=== PATIENT | female | born 1990 | race African-American/Black ===

== ENCOUNTER 2025-03-03 09:58 | Outpatient (OUT) | payer BC, SELFPAY | END 2025-03-03 09:59 | disposition home or self-care (01) | LOC: LAB 10:02 | PROVIDERS: Visit Provider Obstetrics & Gynecology | DX: E28.2 Polycystic ovarian syndrome (principal) | CPT/HCPCS: 36415; 84144 ==

== ENCOUNTER 2025-04-02 10:34 | Outpatient (OUT) | payer BC, SELFPAY ==
--- OUTSIDE RECORDS SUMMARY | 2025-04-02 10:38 | XMS_ITS | Encounter Summary ---
Author Organization [facility] Address [address] [place] [address] Care Team Providers Care Explosives Detonator Name Role Phone Unavailable Primary Care Provider Unavailabl e Encounter Details Date Type Department Care Team (Late Contact Info) Description 02/08/2025 Abstract [facility] [address] [place] [phone] Rob Clay, DO [address] [place], [facility] Social History Tobacco Use Types Packs/Day Years Used Date Smoking Tobacco: Never Assessed Comments Unknown Sex and Gender Information Value Date Recorded Sex Assigned at Not on file Legal Sex Female 6:39 PM EDT Gender Identity Not on file Sexual Orientation Not on file documented as of this encounter Plan of Treatment Upcoming Encounters Date Type Department Care Team (Late Contact Info) Description 06/13/2025 9:50 AM EDT Office Visit [facility] [address] [place] [phone] Rob Clay, DO [address] [place], [facility]11 documented as of this encounter Visit Diagnoses Not on filedocumented in this encounter
--- OUTSIDE RECORDS SUMMARY | 2025-04-02 10:38 | XMS_ITS | Encounter Summary ---
Author Organization [facility] Address [address] [place] [address] Care Team Providers Care Metal Sprayer Protective Coating Name Role Phone Unavailable Primary Care Provider Unavailabl e Encounter Details Date Type Department Care Team ([facility] Contact Info) Description 03/22/2025 Telephone [facility] [address] [place] [phone] Kristin Varela LPN Social History Tobacco Use Types Packs/Day Years Used Date Smoking Tobacco: Never Assessed Comments Unknown Sex and Gender Information Value Date Recorded Sex Assigned at Not on file Legal Sex Female 6:39 PM EDT Gender Identity Not on file Sexual Orientation Not on file documented as of this encounter Miscellaneous Notes * Telephone Encounter - Kristin Varela LPN - 03/22/2025 8:13 AM EDT 03/21/25 11:27am Patient called and LMOM that her cycle actually started on 03/13/25 and wondered if she would be able to have labs drawn on Friday the instead of Friday the . Patient request a call back. 03/22/25 @ 8:13am Called patient and informed her that since her cycle started on 03/13/25 the ideal date to get her labs drawn would be Friday04/02/25 as that would be . Informed patient onmessage that the labs are open for draws on Friday's, but if she was unable to make it on Friday then she could go on Friday if she was not able to. Advised patient to call office with any further concerns/questions. Kristin Wing LPN documented in this encounter Plan of Treatment Upcoming Encounters Date Type Department Care Team (Late st Contact Info) Description 06/13/2025 9:50 AM EDT Office Visit [facility] [address] [place] [phone] Rob Clay, [address] [place] [address] documented as of this encounter Visit Diagnoses Not on filedocumented in this encounter
--- OUTSIDE RECORDS SUMMARY | 2025-04-02 10:38 | XMS_ITS | Clinical Summary ---
Author Organization [facility] Address [address] [place] [address] Care Team Providers Care Power Transformer Assembler Name Role Phone Unavailable Primary Care Provider Unavailabl e Allergies Active Allergy Reactions Criticality Noted Date Comments Latex, Natural Rubber 09/23/2014 Other reaction(s): other Ondansetron Itching 09/19/2016 Sulfa (Sulfonamide Antibiotics) 09/19/2016 Medications No known medications Social History Tobacco Use Types Packs/Day Years Used Date Smoking Tobacco: Never Smokeless Tobacco: Never Tobacco Cessation:Counseling Given: Not Answered Alcohol Use Standard Drinks/Week Comments Yes 0 (1 standard drink = 0.6 oz pur e alcohol) ocassionaly Humiliation, Afraid, Rape, and Kick questionnair e Answer Date Recorded Within the last year, have y ou been afraid of your partner or ex-partner? No 04/22/2023 Within the last year, have y ou been humiliated or emotionally abused in other ways by your partner or ex-partner? No Within the last year, have y ou been kicked, hit, slapped, or otherwise physically hurt by your partner or ex-partner? No 04/22/2023 Within the last year, have y ou been raped or forced to have any kind of sexual activity by your partner or ex-partner? No 04/22/2023 PHQ-2 Answer Date Recorded Patient Health Questionnaire-2 Score 0 04/22/2023 [place] Safety & Environment Answer Date Rec orded Within the last year, have y ou been afraid of your partner or ex-partner? No 04/22/2023 Within the last year, have y ou been humiliated or emotionally abused in other ways by your partner or ex-partner? No 04/22/2023 Within the last year, have y ou been kicked, hit, slapped, or otherwise physically hurt by your partner or ex-partner? No 04/22/2023 Within the last year, have y ou been raped or forced to have any kind of sexual activity by your partner or ex-partner? No 04/22/2023 Physically or Sexually Abused Not on file Comments No Sex and Gender Information Value Date Recorded Sex Assigned at Not on file Legal Sex Female 10:54 PM EDT Gender Identity Not on file Sexual Orientation Not on file Last Filed Vital Signs Vital Sign Reading Time Taken Comments Blood Pressure 120/78 05/29/2021 10:06 AM EDT Pulse 80 03/21/2021 9:59 AM EDT Temperature - - Respiratory Rate - - Oxygen Saturation - - Inhaled Oxygen Concentration - - Weight 70.3 kg (155 lb) 04/22/2023 8:38 AM EDT Height 160 cm (5' 3 ) 04/22/2023 8:38 AM EDT Body Mass Index 27.46 04/22/2023 8:38 AM EDT Plan of Treatment Health Maintenance Due Date Last Done Comments Depression Screening 2004 Varicella Vaccines (1 of 2 - 13+ 2-dose series) 2005 Pap Smear 2013 Cervical Cancer Screening 2022 HPV/Cotest 2022 Influenza Vaccine (Season Ended) 2025 08/01/2017, 11/26/2016, 08/17/2013 Adult Tetanus 04/14/2027 04/14/2017, 09/05, 12/14/2008 Zoster Vaccines (1 of 2) 2042 HIB Vaccines Completed 02/27/1994, 08/06, 05/28/1993, Additional history exists Hepatitis B Vaccines Completed 06/10/1995, 02/27/1994, 08/21/1993 IPV Vaccines Completed 04/14/1997, 02/1995, 05/28/1993, Additional history exists Meningococcal Vaccine Completed 12/14/2008 HPV Vaccines Completed 05/21/2011, 12/04, 12/14/2008 Meningococcal B Vaccine Aged Out No l onger eligible based on patient's age to complete this topic Pneumococcal Vaccine: Pediatrics (0 to 5 Years) and At-Risk Patients (6 to 64 Years) Aged Out No longer eligible based on patient's age to complete this topic Rotavirus Vaccines Aged Out No longer eligible based on patient's age to complete this topic Insurance [facility] MEDICAID
--- OUTSIDE RECORDS SUMMARY | 2025-04-02 10:38 | XMS_ITS | Encounter Summary ---
Author Organization [facility] Address [address] [place] [address] Care Team Providers Care Nursing Consultant Name Role Phone Unavailable Primary Care Provider Unavailabl e Encounter Details Date Type Department Care Team (Late Contact Info) Description 02/10/2025 Abstract [facility] [address] [place] [phone] Rob Clay, DO [address] [place], [facility]11 Social History Tobacco Use Types Packs/Day [...] 06/13/2025 9:50 AM EDT Office Visit [facility] [address] [place] [phone] Rob Clay, DO [address] [place], [facility]11 documented as of this encounter Visit Diagnoses Not on filedocumented in this encounter
--- OUTSIDE RECORDS SUMMARY | 2025-04-02 10:38 | XMS_ITS | Clinical Summary ---
Author Organization [employer] tem Address [id number] [place] [address] Care Team Providers Care Detective Captain Name Role Phone No Pcp, No Pcp Primary Care Provider Unavailabl e Allergies Active Allergy Reactions Criticality Noted Date Comments Latex Other (See Comments) 09/23/2014 Latex, Natural Rubber 09/19/2016 Ondansetron Hcl Sulfa (Sulfonamide Antibiotics) 09/05 Ondansetron Itching 09/19/2016 Medications ibuprofen (MOTRIN) 600 mg tablet Take 1 tablet (600 mg total) by mouth every 8 (eight) hours as needed for pain. 15 tablet 3 Active tiZANidine (ZANAFLEX) 2 mg tablet Take 1 tablet (2 mg total) by mouth every 6 (six) hours as needed for muscle spasms. 15 tablet 3 Active Additional Information Patient not taking.Reported on 11/01/2024 linaCLOtide (LINZESS) 72 mcg capsuleIndicatio ns:Slow transit constipation Take 1 capsule (72 mcg total) by mouth every morning before breakfast. 16 capsule 3 Active Additional Information Patient not taking.Reported on 11/01/2024 vit no.124/iron/foli c ( VITAMIN ORAL) Take by mouth daily. 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 Healing well. Interdry provided. RTC 1 week. Breast engorgement 05/07/2017 8 Overview (05/07/2017): Bilateral breast engorgement, patient concerned about tail of inman engorgement. Reasurance. Warm compress. Reexamine 1 week. Gestational hypertension 05/07/2017 Overview (05/07/2017): BP 146/77 04/30 & 148/88 today. HVRN for daily checks. Follow up visit 1 week. No meds. Thrombocytopenia 05/07/2017 07/07/2018 Overview (05/14/2017): Check CBC @ PP exam. CBC ordered today. Hx of migraine during 02/11/2017 05/07/2017 Overview (02/11/2017): Neurology consult with planned botulinum toxin injections and / or nerve blocks (pending insurance) History of gestational hypertension 02/06/2017 05/07/2017 Overview (02/06/2017): with meds x 6 wks History of 02/06/2017 017 Thrombocytopenia affecting 01/28/2017 05/07/2017 Overview (01/28/2017): 144 at 26 wks, repeat CBC at 30 wks Nausea and vomiting during 10/29/2016 05/07/2017 Tetrahydrocannabinol (THC) u se disorder, mild, abuse 10/01/2016 04/14/2017 Encounters Date Type Department Care Team Description 02/07/2025 Travel from Last 3 Months Immunizations Immunization Administration Dates Next Due Influenza, Injectable, quadrivalent (PF) 017 Influenza, Intradermal (Pf) 08/01/2017 Tdap 04/14/2017 Family History Medical History Relation Name Comments No Known Problems Brother Asthma Father Heart attack Maternal Grandfather Hypertension Mother No Known Problems Sister Breast cancer Neg Hx Colon cancer Neg Hx Ovarian cancer Neg Hx Pancreatic cancer Neg Hx Prostate cancer Neg Hx Uterine cancer Neg Hx Relation Name Status Comments Brother Alive Father Alive Maternal Grandfather Maternal Grandmother Alive Mother Alive Paternal Grandfather Paternal Grandmother Alive Sister Alive Social History Tobacco Use Types Packs/Day Years Used Date Smoking Tobacco: Never Smokeless Tobacco: Never Alcohol Use Standard Drinks/Week Comments No 0 (1 standard drink = 0.6 oz pur e alcohol) Social Connection and Isolat ion Panel [NHANES] Answer Date Recorded Frequency of Communication w ith Friends and Family Three times a week 05/25/2020 Frequency of Social Gatherin gs with Friends and Family Twice a week 05/25/2020 Attends [employer] Day Services More than 4 times per year 05/25/2020 Active Member of Clubs or Organizations Yes 05/25/2020 Attends Club or Organization Meetings 1 to 4 livia es per year 05/25/2020 Marital Status 05/25/2020 AUDIT-C Answer Date Recorded Frequency of Alcohol Consumption Monthly or less 05/25/2020 Average Number of Drinks 3 or 4 020 Frequency of Binge Drinking Never 05/07 Overall Financial Resource Strain (CARDIA) Answe r Date Recorded Difficulty of Paying Living Expenses Not very law[address] rd 05/25/2020 PHQ-2 Answer Date Recorded Total Score 3 11/01/2024 [facility] [place] of Occupat ional Health - Occupational Stress Questionnaire Answer Date Recorded Feeling of Stress Only a little 05/25/2020 Exercise Vital Sign Answer Date Recorde d Days of Exercise per Week 1 day 2019 Minutes of Exercise per Session 20 min 05/25/2020 PRAPARE - Transportation Answer Date Re corded Lack of Transportation (Medical) No 05/25/2020 Lack of Transportation (Non-Medical) No 05/25/2020 Childcare Answer Date Recorded Childcare No 05/25/2020 Employment Answer Date Recorded Employment No 05/25/2020 Hunger Screening Answer Date Recorded Within the past 12 months we worried whether our food would run out before we got money to buy more. Never True 11/01/2024 Within the past 12 months th e food we bought just didn't last and we didn't have money to get more. Never True 11/01/2024 Purpose - Life Answer Date Recorded Purpose and direction in life Unknown Education Answer Date Recorded What is the highest level of school you have completed or the highest degree you have received? Associate degree: occupational, technical, or vocational program 04/21/2019 Comments No Sex and Gender Information Value Date Recorded Sex Assigned at Not on file Legal Sex Female 12:44 PM EDT Gender Identity Not on file Sexual Orientation Not on file Last Filed Vital Signs Vital Sign Reading Time Taken Comments Blood Pressure 100/76 11/01/2024 10:32 AM EST Pulse 65 08/26/2024 2:50 PM EST Temperature 36.9 C (98.4 F) 08/26/2024 2:50 PM EST Respiratory Rate 18 08/26/2024 2:50 PM EST Oxygen Saturation 100% 08/26/2024 3:00 PM EST Inhaled Oxygen Concentration - - Weight 76.4 kg (168 lb 6.4 oz) 11/01/2024 10:32 AM EST Height 160 cm (5' 3 ) 11/01/2024 10:32 AM EST Body Mass Index 29.83 11/01/2024 10:32 AM EST Plan of Treatment Health Maintenance Due Date Last Done Comments Influenza Vaccine 06/06/2025 08/01/2017, , 08/17/2013 Adult BMI Follow Up Plan 11/01/2025 11/01/2024 Adult BMI Screening 11/01/2025 11/01/2024 Depression Screening 11/01/2025 11/01/2024 Tobacco Screening 11/01/2025 11/01/2024 DTaP,Tdap and Td Vaccines (9 - Td or Tdap) 04/14/2027 04/14/2017, 09/17/2015, 12/14/2008, Additional history exists Pap Smear 11/01/2027 11/01/2024, 10/07, 07/07/2018 Medical Devices Not on file Procedures Procedure Name Priority Date/Time Associated Diagnosis Comments ANTIMULLERIAN HORMONE, S Routine 02/07/2025 4:02 PM EDT Amenorrhea, unspecified DEHYDROEPIANDROSTERON E, SERUM Routine 02/07/2025 4:02 PM EDT Amenorrhea, unspecified DHEA-SULFATE Routine 02/07/2025 4:02 PM EDT Amenorrhea, unspecified HEMOGLOBIN A1C Routine 02/07/2025 4:02 PM EDT Amenorrhea, unspecified LUTEINIZING HORMONE Routine 02/07/2025 4 :02 PM EDT Amenorrhea, unspecified FOLLICLE STIMULATING HORMONE Routine 02/07/2025 4:02 PM EDT Amenorrhea, unspecified CBC WITH AUTO DIFFERENTIAL Routine 02/07/2025 4:02 PM EDT Amenorrhea, unspecified THYROID PROFILE INCLUDES TSH FT4 Routine 02/07/2025 4:02 PM EDT Amenorrhea, unspecified HCG-BETA, SERUM Routine 02/07/2025 4:02 PM EDT Amenorrhea, unspecified HIGH RISK HPV W/SHAHRIAR Routine 11/01/2024 5:42 AM EST Pap smear for cervical cancer screening Well woman exam with routine gynecological exam from Last 3 Months or Most Recently Relevant to Health Maintenance Results * Antimullerian Hormone, S (02/07/2025 4:02 PM EDT) ANTIMULLERIAN HORMONE,S 5.3 0.58 - 8.1 ng/mL 02/09/2025 2:36 PM EDT [facility] Xand Comment: ADDITIONAL INFORMATION The testing method is an electrochemiluminescence assay manufactured by [employer] and performed on the Kerry system. Values obtained with different assay methods or kits may be different and cannot be used interchangeably. This test has been modified from the manufacturers instructions. Its performance characteristics were determined by [facility] in a manner consistent with CLIA requirements. This test has not been cleared or approved by the U.S. Food and Drug Administration. Test Performed by: [facility] [place] [address] Tax Examiner: Chalo Guzmán Ph.D.; CLIA# [id number] Blood Venous blood / Unknown Venipuncture / Unknown 02/07/2025 4:02 PM EDT 02/07/2025 4:02 PM EDT Rob Clay DO LAB BLOOD ORDERABLES Final Resu lt [facility] [address] [place] [address], * Dehydroepiandrosterone, Serum (DHEA) (02/07/2025 4:02 PM EDT) DEHYDROEPIANDROSTER ONE, S 1.5 <10 ng/mL 02/10/2025 9:15 AM EDT [facility] Comment: ADDITIONAL INFORMATION This test was developed and its performance characteristics determined by [facility] in a manner consistent with CLIA requirements. This test has not been cleared or approved by the U.S. Food and Drug Administration. Test Performed by: [facility] [place] [address] Tax Examiner: Chalo Guzmán Ph.D.; CLIA# [id number] Blood Venous blood / Unknown Venipuncture / Unknown 02/07/2025 4:02 PM EDT 02/07/2025 4:02 PM EDT us Rob R Danna DO LAB BLOOD ORDERABLES Final Resu lt [facility] [address] [place] [address], [place] * Thyroid profile includes TSH FT4 (02/07/2025 4:02 PM EDT) Pathologist [facility] FREE T4 0.77 0.61 - 1.60 ng/dL 02/07/2025 10:27 PM EDT [facility] TSH 3.98 0.49 - 4.67 uIU/mL 02/07/2025 10:27 PM EDT [facility] Blood Venous blood / Unknown Venipuncture / Unknown 02/07/2025 4:02 PM EDT 02/07/2025 4:02 PM EDT us Rob R Danna DO LAB BLOOD ORDERABLES Final Resu lt [facility] [address] [place] [address], [place] [phone] * (ABNORMAL) CBC auto differential (02/07/2025 4:02 PM EDT) [facility] WBC 4.1 4 - 11 x10E9/L 02/07/2025 9:58 PM EDT [facility] RBC Count 4.44 3.8 - 5.2 X10E12/L 02/07/2025 9:58 PM EDT [facility] Hemoglobin 11.2(L) 11.7 - 15.5 g/dL 02/07/2025 9:58 PM EDT [facility] Hematocrit 33.9(L) 35 - 47 % 02/07/2025 9:58 PM EDT [facility] MCV 76(L) 80 - 100 fL 02/07/2025 9:58 PM EDT [facility] MCH 25.2(L) 27 - 34 pg 02/07/2025 9:58 PM EDT [facility] MCHC 33.1 32 - 36 g/dL 02/07/2025 9:58 PM EDT [facility] RDW 18.5(H) 11.5 - 15 % 02/07/2025 9:58 PM EDT [facility] Platelet Count 269 150 - 450 X10E9/L 02/07/2025 9:58 PM EDT [facility] MPV 8.5 7 - 12 fL 02/07/2025 9:58 PM EDT [facility] Neutrophils % 46.9 % 02/07/2025 9:58 PM EDT [facility] Lymphocytes % 39.6 % 02/07/2025 9:58 PM EDT [facility] Monocytes % 11.5 % 02/07/2025 9:58 PM EDT [facility] Eosinophils % 1.7 % 02/07/2025 9:58 PM EDT [facility] Basophils % 0.3 % 02/07/2025 9:58 PM EDT [facility] Neutrophils Absolute (A) 1.9 10*3/uL 02/07/2025 9:58 PM EDT [facility] Lymphocytes Absolute 1.6 10*3/uL 02/07/2025 9:58 PM EDT [facility] Monocytes Absolute 0.5 10*3/uL 02/07/2025 9:58 PM EDT [facility] Eosinophils Absolute 0.1 10*3/uL 02/07/2025 9:58 PM EDT [facility] Basophils Absolute 0.0 10*3/uL 02/07/2025 9:58 PM EDT [facility] Differential Type AUTOMATED DIFFERENTIAL 02/07/2025 9:58 PM EDT [facility] Blood Venous blood / Unknown Venipuncture / Unknown 02/07/2025 4:02 PM EDT 02/07/2025 4:02 PM EDT us Rob Clay DO LAB BLOOD ORDERABLES Final Resu lt [facility] [address] [place] [address], * DHEA-sulfate (02/07/2025 4:02 PM EDT) DHEA S 60 23 - 266 ug/dL 02/07/2025 10:26 PM EDT [facility] Blood Venous blood / Unknown Venipuncture / Unknown 02/07/2025 4:02 PM EDT 02/07/2025 4:02 PM EDT us Rob R Danna DO LAB BLOOD ORDERABLES Final Resu lt Performing Organization Address City/[facility]/ZIP Co de Phone Number [facility] [address] [place] [address], * hCG, quantitative, (02/07/2025 4:02 PM EDT) SERUM B HCG,3RD I.S. <5 mIU/mL 02/07/2025 10:14 PM EDT [facility] Blood Venous blood / Unknown Venipuncture / Unknown 02/07/2025 4:02 PM EDT 02/07/2025 4:02 PM EDT Narrative [facility] - 02/07/2025 10:14 PM EDT WEEKS (SINCE LMP) MIU/mL 3 WEEKS 5 - 50 4 WEEKS 5 - 426 5 WEEKS 18 - 7,340 6 WEEKS 1,080 - 56,500 7-8 WEEKS 7,650 - 229,000 9-12 WEEKS 25,700 - 288,000 13-16 WEEKS 13,300 - 254,000 17-24 WEEKS 4,060 - 165,400 25-40 WEEKS 3,640 - 117,000 MALES AND NON- FEMALES - <5 MIU/mL This test has been FDA approved for use in only. Elevated levels are not necessarily diagnostic for trophoblastic or nontrophoblastic neoplasms. Rob R Danna DO LAB BLOOD ORDERABLES Final Resu lt Performing Organization Address City/[facility]/ZIP Co de Phone Number [facility] [address] [place] [address], [place] [phone] * Hemoglobin A1c (02/07/2025 4:02 PM EDT) HEMOGLOBIN A1C 5.0 4.4 - 5.6 % 02/07/2025 11:03 PM EDT [facility] Comment: ADA Guidelines Result HgbA1c Normal : less than 5.7 % Prediabetes : 5.7 % to 6.4 % Diabetes : > 6.4 % Use with caution in patients with abnormal hemoglobin variants as the half-life of red blood cells and in vivo glycation rates are affected. EST. AVERAGE GLUCOSE 97 mg/dL 02/07/2025 11:03 PM EDT [facility] Blood Venous blood / Unknown Venipuncture / Unknown 02/07/2025 4:02 PM EDT 02/07/2025 4:02 PM EDT Rob R Danna DO LAB BLOOD ORDERABLES Final Resu lt Performing Organization Address City/[facility]/ZIP Co de Phone Number [facility] [address] [place] [address], [place] [phone] * Luteinizing hormone (02/07/2025 4:02 PM EDT) LUTEINIZING HORMONE 4.3 mIU/mL 02/07/2025 10:52 PM EDT [facility] Blood Venous blood / Unknown Venipuncture / Unknown 02/07/2025 4:02 PM EDT 02/07/2025 4:02 PM EDT Narrative [facility] - 02/07/2025 10:52 PM EDT NORMAL FEMALE Follicular 2.1-10.9 mIU/mL Mid Cycle 19.2-103 mIU/mL Luteal 1.2-12.9 mIU/mL Post Cally 10.9-58.6 mIU/mL Risktail DO LAB BLOOD ORDERABLES Final Resu lt [facility] [address] [place] [address], * Follicle stimulating hormone (02/07/2025 4:02 PM EDT) FOLLICLE STIM HORMONE 1.5 mIU/mL 02/07/2025 10:50 PM EDT [facility] Blood Venous blood / Unknown Venipuncture / Unknown 02/07/2025 4:02 PM EDT 02/07/2025 4:02 PM EDT Narrative [facility] - 02/07/2025 10:50 PM EDT NORMAL FEMALE: Luteal 1.8-5.1 mIU/mL Follicular 3.8-8.8 mIU/mL Mid Cycle 4.5-22.5 mIU/mL Post Cally 16.7-113.6 mIU/mL Risktail DO LAB BLOOD ORDERABLES Final Resu lt [facility] [address] [place] [address], * High risk HPV w/shahriar (11/01/2024 5:42 AM EST) Hpv specimen type ThinPrep 11/02/2024 5:43 AM EST [facility] Hpv 16 Negative Negative^N egative 11/02/2024 2:15 PM EST [facility] Hpv 18 Negative Negative^N egative 11/02/2024 2:15 PM EST [facility] Other high risk hpv Negative Negative^N egative 11/02/2024 2:15 PM EST [facility] Comment: HPV types 31,33,35,39,45,52,56,58,59,66 and 68 DNA were undetectable. THINP 11/01/2024 5:42 AM EST 11/02/2024 5:43 AM EST us Yolanda Meza [employer]ATE[employer] PROJECT SITE MONITOR-CNM LAB BLOOD ORDERABLES Fin al Result [facility] [address] [place] [address] [facility] [address] [place] [address], [address] [place] [address] from Last 3 Months or Most Recently Relevant to Health Maintenance Insurance [facility] Care Teams Detective Captain Relationship Specialty Start Date End Date No Pcp, [place] [address] PCP - General Family Medicine 08/26/24
--- OUTSIDE RECORDS SUMMARY | 2025-04-02 10:38 | XMS_ITS | Encounter Summary ---
Author Organization [employer] Address [id number] [place] [address] Care Team Providers Care Riding Double Name Role Phone No Pcp, No Pcp Primary Care Provider Unavailabl e Encounter Details Date Type Department Care Team (Late st Contact Info) Description 01/08/2023 Telephone [facility] [address] [place] [address] [address] Georgia Noyola CMA Social History Tobacco Use Types Packs/Day Years [...] and Family Twice a week 05/25/2020 Attends [employer] Services More than 4 times per year [...] 05/25/2020 PHQ-2 Answer Date Recorded Total Score 2 01/07/2023 [facility] [place] of Occupat ional Health - Occupational Stress [...] Employment Answer Date Recorded Employment No 05/25/2020 Purpose - Life Answer Date Recorded Purpose [...] on file Sexual Orientation Not on file COVID-19 Exposure Response Date Recorded In the last month, have you been in contact with someone who was confirmed or suspected to have Coronavirus / COVID-19? No / Unsure 01/07/2023 9:01 AM EDT documented as of this encounter Miscellaneous Notes * Telephone Encounter - Georgia Noyola CMA - 01/08/2023 2:56 PM EDT Patient called into office to let provider know that she took her first dose of linzess yesterday and did experience diarrhea. She stated she was supposed to notify provider. Patient didn't know if she was supposed to continue daily of every other day. Please advise. * Telephone Encounter - KEITH Herring - 01/08/2023 2:56 PM EDT Patient should take the linzess every other day * Telephone Encounter - Georgia Noyola CMA - 01/08/2023 2:56 PM EDT Patient was called and given instruction, she stated she understood and would start taking them every other day. documented in this encounter Plan of Treatment Not on file documented as of this encounter Visit Diagnoses Not on filedocumented in this encounter Additional Health Concerns Assessment Noted Time PHQ-9 Depression Total Score: 2 01/08/20 9:08 AM EDT A Body Mass Index follow-up plan has been documented for the patient 08/07/2020 5:20 PM EST documented as of this encounter Care Teams Riding Double Relationship Specialty Start Date End Date No Pcp, [place] [address] PCP - General Family Medicine 08/26/24 documented as of this encounter
--- OUTSIDE RECORDS SUMMARY | 2025-04-02 10:38 | XMS_ITS | Encounter Summary ---
Author Organization [facility] Address [address] [place] [address] Care Team Providers Care Marketing Database Analyst Name Role Phone Unavailable Primary Care Provider Unavailabl e Encounter Details Date Type Department Care Team (Late Contact Info) Description 02/07/2025 Abstract [facility] [address] [place] [phone] Rob Clay, DO [address], [...] 06/13/2025 9:50 AM EDT Office Visit [facility] [address] [place] [phone] Rob Clay, DO [address], [facility]11 documented as of this encounter Visit Diagnoses Not on filedocumented in this encounter
--- OUTSIDE RECORDS SUMMARY | 2025-04-02 10:38 | XMS_ITS | Encounter Summary ---
Author Organization [employer] [facility] Address [id number] [place] [address] Care Team Providers Care Distance Learning Administrator Name Role Phone No Pcp, No Pcp Primary Care Provider Unavailabl e Encounter Details Date Type Department Care Team ([facility] st Contact Info) Description 10/17/2021 Orders Only [facility] [address] [place] [phone] Bhavna Crump CMA Close exposure to COVID-19 virus Social History Tobacco Use Types Packs/Day Years [...] and Family Twice a week 05/25/2020 Attends [employer] Services More than 4 times per year [...] 05/25/2020 PHQ-2 Answer Date Recorded Total Score 0 08/24/2019 [facility] of Occupat ional Health - Occupational Stress [...] as of this encounter Plan of Treatment Not on file documented as of this encounter Procedures Procedure Name Priority Date/Time Associated Diagnosis Comments SARS COV 2 (COVID-19) STAT 10/10/2021 Close exposure to COVID-19 virus documented in this encounter Results * SARS COV 2 (COVID-19)[Lab Collect] (10/10/2021) EXTERNAL SARS COV 2 Negative Negative [facility] 10/10/2021 Caroline Vora APRN-NEW ACCOUNTS BANKING REPRESENTATIVE MICROBIOLOGY - GENE RAL ORDERABLES Final Result [facility] documented in this encounter Visit Diagnoses Diagnosis Close exposure to COVID-19 virus documented in this encounter Additional Health Concerns Assessment Noted Time PHQ-9 Depression Total Score: 0 08/24/20 19 5:16 PM EST A Body Mass Index follow-up plan has been documented for the patient 08/07/2020 5:20 PM EST documented as of this encounter Care Teams Distance Learning Administrator Relationship Specialty Start Date End Date No Pcp, [place] [address] PCP - General Family Medicine 08/26/24 documented as of this encounter
--- OUTSIDE RECORDS SUMMARY | 2025-04-02 10:38 | XMS_ITS | Encounter Summary ---
Author Organization [facility] Address [address] [place] [address] Care Team Providers Care Cable Splicing Technician Name Role Phone Unavailable Primary Care Provider Unavailabl e Encounter Details Date Type Department Care Team (Late Contact Info) Description 02/09/2025 Abstract [facility] [address] [place] [phone] Rob Clay, DO [address], [facility]11 Social History Tobacco Use Types Packs/Day [...] 06/13/2025 9:50 AM EDT Office Visit [facility] [address] [place] [phone] Rob Clay, DO [address], [facility]11 documented as of this encounter Visit Diagnoses Not on filedocumented in this encounter
--- OUTSIDE RECORDS SUMMARY | 2025-04-02 10:38 | XMS_ITS | Encounter Summary ---
Author Organization [email or web address] Address [id number] [address] [place] [address] Care Team Providers Care Park Aide Name Role Phone No Pcp, No Pcp Primary Care Provider Unavailabl e Reason for Visit * Reason Onset Date Comments reschd appt 2020 Encounter Details Date Type Department Care Team (Late st Contact Info) Description 2020 [facility] [address] [place] [phone] Jennifer Alvarez reschd appt Social History Tobacco Use Types Packs/Day Years [...] and Family Twice a week 05/25/2020 Attends Scientologist Services More than 4 times per year [...] Answer Date Recorded Total Score 0 08/24/2019 [facility] [place] of Occupat ional Health - Occupational Stress [...] Employment Answer Date Recorded Employment No 05/25/2020 Education Answer Date Recorded What is the [...] have Coronavirus / COVID-19? No / Unsure 09/11/2020 11:15 AM EST documented as of this encounter Miscellaneous Notes * Telephone Encounter - Jennifer Alvarez - 2020 3:46 PM EST Patient's appt on 10/13/20 with Tiffanie Mancini needs to be rescheduled at this time due to Tiffanie Mancininot having 4pm time slot anymore. Please reschedule if patient calls back to next available time slot. Left voicemail and postcard sent documented in this encounter Plan of Treatment Not on file documented as of this encounter Visit Diagnoses Not on filedocumented in this encounter Additional Health Concerns Assessment Noted Time PHQ-9 Depression Total Score: 0 08/24/20 19 5:16 PM EST A Body Mass Index follow-up plan has been documented for the patient 08/07/2020 5:20 PM EST documented as of this encounter Care Teams Park Aide Relationship Specialty Start Date End Date No Pcp, [place] [address] PCP - General Family Medicine 08/26/24 documented as of this encounter
--- OUTSIDE RECORDS SUMMARY | 2025-04-02 10:38 | XMS_ITS | Referral Summary ---
Author Organization [facility] Address [address] [place] [address] Care Team Providers Care Paperhanger Pipe Name Role Phone Unavailable Primary Care Provider [...] 04/22/2023 8:38 AM EDT Plan of Treatment Not on file Insurance [facility] MEDICA[facility]
--- OUTSIDE RECORDS SUMMARY | 2025-04-02 10:38 | XMS_ITS | Encounter Summary ---
Author Organization [employer] [facility] [employer] Address [id number] [address] [place] [address] Care Team Providers Care Director Of Fundraising Name Role Phone No Pcp, No Pcp Primary Care Provider Unavailabl e Encounter Details Date Type Department Care Team (Late st Contact Info) Description 10/09/2021 Telephone [facility] [address] [place] [address] [place] [phone] Bhavna Crump CMA Social History Tobacco Use Types Packs/Day [...] and Family Twice a week 05/25/2020 Attends Mu-Ism Services More than 4 times per year [...] Answer Date Recorded Total Score 0 08/24/2019 [facility] [place] of Occupat ional Health - Occupational Stress [...] encounter Miscellaneous Notes * Telephone Encounter - Bhavna Crump CMA - 10/09/2021 3:56 PM EST NON SYMPTOMATIC, BEEN EXPOSED HOUSEHOLD MEMBER HAS TESTED POSITIVE. WANTS TESTED FOR COVID. LIVES WITH HIGH RISK CHILD. HOUSEHOLD MEMBER TESTED POSITIVE 10-08-21 documented in this encounter Plan of Treatment Not on file documented as of this encounter Visit Diagnoses Not on filedocumented in this encounter Additional Health Concerns Assessment Noted Time PHQ-9 Depression Total Score: 0 08/24/20 19 5:16 PM EST A Body Mass Index follow-up plan has been documented for the patient 08/07/2020 5:20 PM EST documented as of this encounter Care Teams Director Of Fundraising Relationship Specialty Start Date End Date No Pcp, No Pcp JAMES [place] [address] PCP - General Family Medicine 08/26/24 documented as of this encounter
--- OUTSIDE RECORDS SUMMARY | 2025-04-02 10:38 | XMS_ITS | Encounter Summary ---
Author Organization [employer] Address [id number] [address] [place] [address] Care Team Providers Care Inspector Hot Forgings Name Role Phone No Pcp, No Pcp Primary Care Provider Unavailabl e Encounter Details Date Type Department Care Team (Late st Contact Info) Description 07/20/2020 Orders Only [facility] [address] [place] [phone] Tiffanie Mancini, WIRER MAINTENANCE-CORPORATE DEVELOPMENT ANALYST [address] [place] [address] Social History Tobacco Use Types Packs/Day Years [...] and Family Twice a week 05/25/2020 Attends Gnosticist Services More than 4 times per year [...] Answer Date Recorded Total Score 0 08/24/2019 [facility] [place] of Occupat ional Health - Occupational Stress [...] have Coronavirus / COVID-19? No / Unsure 07/13/2020 3:51 PM EDT documented as of this encounter Plan of Treatment Not on file documented as of this encounter Visit Diagnoses Not on filedocumented in this encounter Additional Health Concerns Assessment Noted Time PHQ-9 Depression Total Score: 0 08/24/20 19 5:16 PM EST A Body Mass Index follow-up plan has been documented for the patient 08/05/2019 9:13 AM EDT documented as of this encounter Care Teams Inspector Hot Forgings Relationship Specialty Start Date End Date No Pcp, [place] [address] PCP - General Family Medicine 08/26/24 documented as of this encounter
[2025-04-03 06:38] LABS: Progesterone 28.1 ng/mL (.)
== END 2025-04-02 10:35 | disposition home or self-care (01) ==
LOC: LAB 10:36
PROVIDERS: Visit Provider Obstetrics & Gynecology
DX: E28.2 Polycystic ovarian syndrome (principal)
CPT/HCPCS: 36415; 84144

== ENCOUNTER 2025-04-29 13:33 | Outpatient (OUT) | payer BC, SELFPAY ==
--- OUTSIDE RECORDS SUMMARY | 2025-04-29 13:39 | XMS_ITS | Encounter Summary ---
Author Organization [employer] Address [id number] [address] [place] [address] Care Team Providers Care Manager Of Case Name Role Phone No Pcp, No Pcp Primary Care Provider Unavailabl e Encounter Details Date Type Department Care Team (Late st Contact Info) Description 07/20/2020 Orders Only [facility] [address] [place] [phone] Tiffanie Mancini, DOPE HOUSE OPERATOR HELPER-PHARMACEUTICAL WORKER [address] [place] [address] Social History Tobacco Use Types Packs/Day Years [...] and Family Twice a week 05/25/2020 Attends Caodaism Services More than 4 times per year [...] Answer Date Recorded Total Score 0 08/24/2019 [facility] [place] of Occupat ional Health - Occupational Stress [...] documented as of this encounter Care Teams Manager Of Case Relationship Specialty Start Date End Date No Pcp, [place] [address] PCP - General Family Medicine 08/26/24 documented as of this encounter
--- OUTSIDE RECORDS SUMMARY | 2025-04-29 13:40 | XMS_ITS | Clinical Summary ---
Author Organization [employer] Address [id number] [address] [place] [address] Care Team Providers Care Countersinker Name Role Phone No Pcp, No Pcp [...] care following delivery 05/07/2017 07/07/2018 Overview (05/14/2017): Almyra removed. Healing well. Interdry provided. RTC 1 [...] and Family Twice a week 05/25/2020 Attends Voodoo Services More than 4 times per year [...] Answer Date Recorded Total Score 3 11/01/2024 [employer] [place] of Occupat ional Health - Occupational Stress [...] - 8.1 ng/mL 02/09/2025 2:[address] [facility] [employer] Comment: ADDITIONAL INFORMATION The testing method is an electrochemiluminescence assay manufactured by [employer] and performed on the Kerry system. Values obtained with different assay methods or kits may be different and cannot be used interchangeably. This test has been modified from the manufacturers instructions. Its performance characteristics were determined by [facility] in a manner consistent with CLIA requirements. This test has not been cleared or approved by the U.S. Food and Drug Administration. Test Performed by: [facility] [place] [address] Management Expert: Chalo Guzmán Ph.D.; CLIA# [id number] Blood Venous blood / Unknown Venipuncture / Unknown 02/07/2025 4:02 PM EDT 02/07/2025 4:02 PM EDT Rob Clay DO LAB BLOOD ORDERABLES Final Resu lt [facility] [address] [place] [address], * Dehydroepiandrosterone, Serum (DHEA) (02/07/2025 4:02 PM EDT) DEHYDROEPIANDROSTER ONE, S 1.5 <10 ng/mL 02/10/2025 9:15 AM EDT [facility] Comment: ADDITIONAL INFORMATION This test was developed and its performance characteristics determined by [facility] in a manner consistent with CLIA requirements. This test has not been cleared or approved by the U.S. Food and Drug Administration. Test Performed by: [facility] [place] [address] Management Expert: Chalo Guzmán Ph.D.; CLIA# [id number] Blood Venous blood / Unknown Venipuncture / Unknown 02/07/2025 4:02 PM EDT 02/07/2025 4:02 PM EDT us Rob R Danna DO LAB BLOOD ORDERABLES Final Resu lt [facility] [address] [place] [address], [place] * Thyroid profile includes TSH FT4 (02/07/2025 4:02 PM EDT) Pathologist [facility] FREE T4 0.77 0.61 - 1.60 ng/dL 02/07/2025 10:27 PM EDT [facility] TSH 3.98 0.49 - 4.67 uIU/mL 02/07/2025 10:27 PM EDT [facility] Blood Venous blood / Unknown Venipuncture / Unknown 02/07/2025 4:02 PM EDT 02/07/2025 4:02 PM EDT us Rob R Danna DO LAB BLOOD ORDERABLES Final Resu lt [facility] [address] [place] [address], [place] [phone] * (ABNORMAL) CBC auto differential (02/07/2025 4:02 PM EDT) [facility] WBC 4.1 4 - 11 x10E9/L 02/07/2025 9:58 PM EDT [facility] RBC Count 4.44 3.8 - 5.2 X10E12/L 02/07/2025 9:58 PM EDT [facility] Hemoglobin 11.2(L) 11.7 - 15.5 g/dL 02/07/2025 9:58 PM EDT [facility] Hematocrit 33.9(L) 35 - 47 % 02/07/2025 9:58 PM EDT [facility] MCV 76(L) 80 - 100 fL 02/07/2025 9:58 PM EDT [facility] MCH 25.2(L) 27 - 34 pg 02/07/2025 9:58 PM EDT [facility] MCHC 33.1 32 - 36 g/dL 02/07/2025 9:58 PM EDT [facility] RDW 18.5(H) 11.5 - 15 % 02/07/2025 9:58 PM EDT [facility] Platelet Count 269 150 - 450 X10E9/L 02/07/2025 9:58 PM EDT [facility] MPV 8.5 7 - 12 fL 02/07/2025 9:58 PM EDT [facility] Neutrophils % 46.9 % 02/07/2025 9:58 PM EDT [facility] Lymphocytes % 39.6 % 02/07/2025 9:58 PM EDT [facility] Monocytes % 11.5 % 02/07/2025 9:58 PM EDT [facility] Eosinophils % 1.7 % 02/07/2025 9:58 PM EDT [facility] Basophils % 0.3 % 02/07/2025 9:58 PM EDT [facility] Neutrophils Absolute (A) 1.9 10*3/uL 02/07/2025 9:58 PM EDT [facility] Lymphocytes Absolute 1.6 10*3/uL 02/07/2025 9:58 PM EDT [facility] Monocytes Absolute 0.5 10*3/uL 02/07/2025 9:58 PM EDT [facility] Eosinophils Absolute 0.1 10*3/uL 02/07/2025 9:58 PM EDT [facility] Basophils Absolute 0.0 10*3/uL 02/07/2025 9:58 PM EDT [facility] Differential Type AUTOMATED DIFFERENTIAL 02/07/2025 9:58 PM EDT [facility] Blood Venous blood / Unknown Venipuncture / Unknown 02/07/2025 4:02 PM EDT 02/07/2025 4:02 PM EDT us Rob Clay DO LAB BLOOD ORDERABLES Final Resu lt [facility] [address] [place] [address], * DHEA-sulfate (02/07/2025 4:02 PM EDT) DHEA S 60 23 - 266 ug/dL 02/07/2025 10:26 PM EDT [facility] Blood Venous blood / Unknown Venipuncture / Unknown 02/07/2025 4:02 PM EDT 02/07/2025 4:02 PM EDT us Rob R Danna DO LAB BLOOD ORDERABLES Final Resu lt Performing Organization Address City/[facility]/ZIP Co de Phone Number [facility] [address] [place] [address], * hCG, quantitative, (02/07/2025 4:02 PM EDT) SERUM B HCG,3RD I.S. <5 mIU/mL 02/07/2025 10:14 PM EDT [facility] Blood Venous blood / Unknown Venipuncture / Unknown 02/07/2025 4:02 PM EDT 02/07/2025 4:02 PM EDT Narrative [facility] - 02/07/2025 10:14 PM EDT WEEKS [...] ORDERABLES Final Resu lt Performing Organization Address City/[facility]/ZIP Co de Phone Number [facility] [address] [place] [address], [place] [phone] * Hemoglobin A1c (02/07/2025 4:02 PM EDT) HEMOGLOBIN A1C 5.0 4.4 - 5.6 % 02/07/2025 11:03 PM EDT [facility] Comment: ADA Guidelines Result HgbA1c Normal : less than 5.7 % Prediabetes : 5.7 % to 6.4 % Diabetes : > 6.4 % Use with caution in patients with abnormal hemoglobin variants as the half-life of red blood cells and in vivo glycation rates are affected. EST. AVERAGE GLUCOSE 97 mg/dL 02/07/2025 11:03 PM EDT [facility] Blood Venous blood / Unknown Venipuncture / Unknown 02/07/2025 4:02 PM EDT 02/07/2025 4:02 PM EDT Rob R Danna DO LAB BLOOD ORDERABLES Final Resu lt Performing Organization Address City/[facility]/ZIP Co de Phone Number [facility] [address] [place] [address], [place] [phone] * Luteinizing hormone (02/07/2025 4:02 PM EDT) LUTEINIZING HORMONE 4.3 mIU/mL 02/07/2025 10:52 PM EDT [facility] Blood Venous blood / Unknown Venipuncture / Unknown 02/07/2025 4:02 PM EDT 02/07/2025 4:02 PM EDT Narrative [facility] - 02/07/2025 10:52 PM EDT NORMAL FEMALE Follicular 2.1-10.9 mIU/mL Mid Cycle 19.2-103 mIU/mL Luteal 1.2-12.9 mIU/mL Post Cally 10.9-58.6 mIU/mL Rubikloud DO LAB BLOOD ORDERABLES Final Resu lt [facility] [address] [place] [address], * Follicle stimulating hormone (02/07/2025 4:02 PM EDT) FOLLICLE STIM HORMONE 1.5 mIU/mL 02/07/2025 10:50 PM EDT [facility] Blood Venous blood / Unknown Venipuncture / Unknown 02/07/2025 4:02 PM EDT 02/07/2025 4:02 PM EDT Narrative [facility] - 02/07/2025 10:50 PM EDT NORMAL FEMALE: Luteal 1.8-5.1 mIU/mL Follicular 3.8-8.8 mIU/mL Mid Cycle 4.5-22.5 mIU/mL Post Cally 16.7-113.6 mIU/mL Rubikloud DO LAB BLOOD ORDERABLES Final Resu lt [facility] [address] [place] [address], * High risk HPV w/shahriar (11/01/2024 5:42 AM EST) Hpv specimen type ThinPrep 11/02/2024 5:43 AM EST [facility] Hpv 16 Negative Negative^N egative 11/02/2024 2:15 PM EST [facility] Hpv 18 Negative Negative^N egative 11/02/2024 2:15 PM EST [facility] Other high risk hpv Negative Negative^N egative 11/02/2024 2:15 PM EST [facility] Comment: HPV types 31,33,35,39,45,52,56,58,59,66 and 68 DNA were undetectable. THINP 11/01/2024 5:42 AM EST 11/02/2024 5:43 AM EST us Yolanda Meza VOCATIONAL TRAINING DIRECTOR-CNM LAB BLOOD ORDERABLES Fin al Result [facility] [address] [facility] [place] [address] [facility] [address] [place] [address], [address] [place] [address] from Last 3 Months or Most Recently Relevant to Health Maintenance Insurance [facility] Care Teams Countersinker Relationship Specialty Start Date End Date No Pcp, [place] [address] PCP - General Family Medicine 08/26/24
--- OUTSIDE RECORDS SUMMARY | 2025-04-29 13:40 | XMS_ITS | Clinical Summary ---
Author Organization [facility] Address [address] [place] [address] Care Team Providers Care Piano Accompanist Name Role Phone Unavailable Primary Care Provider [...] Cancer Screening 2022 HPV/Cotest 2022 Influenza Vaccine (#1) 2025 7, 11/26/2016, 08/17/2013 Adult Tetanus 04/14/2027 04/14/2017, 09/05, [...] patient's age to complete this topic Insurance [facility] MEDICAID
--- OUTSIDE RECORDS SUMMARY | 2025-04-29 13:40 | XMS_ITS | Encounter Summary ---
Author Organization [facility] Address [address] [place] [address] Care Team Providers Care [place] Leverman Name Role Phone Unavailable Primary Care Provider Unavailabl e Encounter Details Date Type Department Care Team ([facility] Contact Info) Description 04/18/2025 Telephone [facility] [address] [place] [phone] Rob Clay, DO [address] [place], [facility] Social History Tobacco Use Types Packs/Day Years Used Date Smoking Tobacco: Never Assessed Comments Unknown Sex and Gender Information Value Date Recorded Sex Assigned at Not on file Legal Sex Female 6:39 PM EDT Gender Identity Not on file Sexual Orientation Not on file documented as of this encounter Miscellaneous Notes * Telephone Encounter - Kristin VarelaBLU - 04/18/2025 4:58 PM EDT 4:58pm Dr. Clay called patient to review semen analysis with patient and that everything looked WNL, but viscosity is thickened. Advised patient to have spouse use Mucinex for at least 3 months to see if this helps, if not then options are repeat semen analysis or IUI would be an options. PVU and has ordered medication online and VU that it would be beneficially if both of them took OTC medication. If after 3 months then patient could then be referred. Patient is also able to be scheduled for HSG as well if she desires. ---Patient would like to have HSG done with her next cycle.--- Documented on behalf of Dr. Rob Clay DO documented in this encounter Plan of Treatment Upcoming Encounters Date Type Department Care Team (Late st Contact Info) Description 06/13/2025 9:50 AM EDT Office Visit [facility] [address] [facility] [address] [place] [phone] Rob Clay DO [address] [place] [address] documented as of this encounter Visit Diagnoses Not on filedocumented in this encounter
--- OUTSIDE RECORDS SUMMARY | 2025-04-29 13:40 | XMS_ITS | Encounter Summary ---
Author Organization [facility] Address [address] [place] [address] Care Team Providers Care Model Maker Plaster Name Role Phone Unavailable Primary Care Provider Unavailabl e Encounter Details Date Type Department Care Team (Late Contact Info) Description 02/07/2025 Abstract [facility] OB [address] [place] [phone] Rob Clay, DO [address] [place], [facility] Social History Tobacco Use Types Packs/Day [...] 06/13/2025 9:50 AM EDT Office Visit [facility] OB [address] [place] [phone] Rob Clay, DO [address] [place], [facility] documented as of this encounter Visit Diagnoses Not on filedocumented in this encounter
--- OUTSIDE RECORDS SUMMARY | 2025-04-29 13:40 | XMS_ITS | Encounter Summary ---
Author Organization [facility] Address [address] [place] [address] Care Team Providers Care Onyx Chip Terrazzo Worker Name Role Phone Unavailable Primary Care Provider Unavailabl e Encounter Details Date Type Department Care Team (Late Contact Info) Description 02/08/2025 Abstract [facility] OB [address] [place] [phone] Rob Clay, DO [address] [place], [facility] Social History Tobacco Use Types Packs/Day [...] 06/13/2025 9:50 AM EDT Office Visit [facility] OB [address] [place] [phone] Rob Clay, DO [address], [facility] documented as of this encounter Visit Diagnoses Not on filedocumented in this encounter
--- OUTSIDE RECORDS SUMMARY | 2025-04-29 13:40 | XMS_ITS | Encounter Summary ---
Author Organization [facility] Address [address] [place] [address] Care Team Providers Care Porcelain Finish Sprayer Name Role Phone Unavailable Primary Care Provider Unavailabl e Encounter Details Date Type Department Care Team (Late st Contact Info) Description 04/25/2025 Telephone [facility] [address] [place] [address] Sherin Wise MA [address] [place] [address] [place] [address] Social History Tobacco Use Types Packs/Day Years Used Date Smoking Tobacco: Never Assessed Comments Unknown Sex and Gender Information Value Date Recorded Sex Assigned at Not on file Legal Sex Female 6:39 PM EDT Gender Identity Not on file Sexual Orientation Not on file documented as of this encounter Miscellaneous Notes * Telephone Encounter - Sherin Wise MA - 04/25/2025 1:06 PM EDT Pt called has a UTI in need of medication. Advised pt will send in macrobid. PVU. documented in this encounter Plan of Treatment Upcoming Encounters Date Type Department Care Team (Late st Contact Info) Description 06/13/2025 9:50 AM EDT Office Visit [facility] [address] [place] [address] Rob Clay DO [address] [place] [address] documented as of this encounter Visit Diagnoses Diagnosis Urinary tract infection without hematuria, site unspecified documented in this encounter
--- OUTSIDE RECORDS SUMMARY | 2025-04-29 13:40 | XMS_ITS | Encounter Summary ---
Author Organization [facility] Address [address] [place] [address] Care Team Providers Care Tank Car Loader Name Role Phone Unavailable Primary Care Provider Unavailabl e Encounter Details Date Type Department Care Team (Late Contact Info) Description 02/10/2025 Abstract [facility] OB [address] [place] [phone] Rob Clay, DO [address], [facility]11 Social History Tobacco Use Types Packs/Day Years [...] 06/13/2025 9:50 AM EDT Office Visit [facility] OB [address] [place] [phone] Rob Clay, DO [address], [facility]11 documented as of this encounter Visit Diagnoses Not on filedocumented in this encounter
--- OUTSIDE RECORDS SUMMARY | 2025-04-29 13:40 | XMS_ITS | Encounter Summary ---
Author Organization [employer] Address [id number] [address] [place] [address] Care Team Providers Care Mainstreaming Facilitator Name Role Phone No Pcp, No Pcp Primary Care Provider Unavailabl e Reason for Visit * Reason Onset Date Comments reschd appt 2020 Encounter Details Date Type Department Care Team (Late st Contact Info) Description 2020 [facility] [address] [place] [phone] Jennifer Alvarez reschd appt Social History Tobacco [...] and Family Twice a week 05/25/2020 Attends Adventist Services More than 4 times per year [...] Answer Date Recorded Total Score 0 08/24/2019 [facility] [place] of Occupat ional Health - Occupational Stress [...] documented as of this encounter Care Teams Mainstreaming Facilitator Relationship Specialty Start Date End Date No Pcp, [place] [address] PCP - General Family Medicine 08/26/24 documented as of this encounter
--- OUTSIDE RECORDS SUMMARY | 2025-04-29 13:40 | XMS_ITS | Encounter Summary ---
Author Organization [employer] Address [id number] [address] [place] [address] Care Team Providers Care Customer Insight Analyst Name Role Phone No Pcp, No Pcp Primary Care Provider Unavailabl e Encounter Details Date Type Department Care Team (Late st Contact Info) Description 01/08/2023 Telephone [facility] [address] [place] [address] [place] [address] Georgia Noyola CMA Social History [...] and Family Twice a week 05/25/2020 Attends Sabianist Services More than 4 times per year [...] Answer Date Recorded Total Score 2 01/07/2023 [facility] [place] of Occupat ional Health - Occupational Stress [...] documented as of this encounter Care Teams Customer Insight Analyst Relationship Specialty Start Date End Date No Pcp, [place] [address] PCP - General Family Medicine 08/26/24 documented as of this encounter
--- OUTSIDE RECORDS SUMMARY | 2025-04-29 13:40 | XMS_ITS | Encounter Summary ---
Author Organization [facility] Address [id number] [address] [place] [address] Care Team Providers Care Engine Service Repairer Name Role Phone No Pcp, No Pcp Primary Care Provider Unavailabl e Encounter Details Date Type Department Care Team (Late st Contact Info) Description 10/09/2021 Telephone [facility] [address] [place] [phone] Bhavna Crump CMA Social History Tobacco Use [...] and Family Twice a week 05/25/2020 Attends [employer] Services More than 4 times per year [...] Answer Date Recorded Total Score 0 08/24/2019 [facility] [place] of Occupat ional Health - Occupational Stress [...] documented as of this encounter Care Teams Engine Service Repairer Relationship Specialty Start Date End Date No Pcp, No Pcp JAMES Mario [id number] PCP - General Family Medicine 08/26/24 documented as of this encounter
--- OUTSIDE RECORDS SUMMARY | 2025-04-29 13:40 | XMS_ITS | Encounter Summary ---
Author Organization [facility] Address [id number] [address] [place] [address] Care Team Providers Care Bonding Machine Tender Name Role Phone No Pcp, No Pcp Primary Care Provider Unavailabl e Encounter Details Date Type Department Care Team ([facility] st Contact Info) Description 10/17/2021 Orders Only [facility] [address] [place] [phone] Bhavna Crump CMA Close exposure to COVID-19 [...] and Family Twice a week 05/25/2020 Attends [employer] Services More than 4 times per year [...] Answer Date Recorded Total Score 0 08/24/2019 [place] [place] of Occupat ional Health - Occupational Stress [...] Negative Negative SUNQUEST NASOPHARYNGEAL 10/10/2021 Caroline Vora APRN-ARMOR RECONNAISSANCE VEHICLE DRIVER MICROBIOLOGY - GENE RAL ORDERABLES Final Result SUNQUEST documented in this encounter Visit Diagnoses Diagnosis Close exposure to COVID-19 virus documented in this encounter Additional Health Concerns Assessment Noted Time PHQ-9 Depression Total Score: 0 08/24/20 19 5:16 PM EST A Body Mass Index follow-up plan has been documented for the patient 08/07/2020 5:20 PM EST documented as of this encounter Care Teams Bonding Machine Tender Relationship Specialty Start Date End Date No Pcp, [place] [address] PCP - General Family Medicine 08/26/24 documented as of this encounter
--- OUTSIDE RECORDS SUMMARY | 2025-04-29 13:40 | XMS_ITS | Encounter Summary ---
Author Organization [facility] Address [address] [place] [address] Care Team Providers Care Engineer First Assistant Name Role Phone Unavailable Primary Care Provider Unavailabl e Encounter Details Date Type Department Care Team (Late Contact Info) Description 02/09/2025 Abstract [facility] [address] [place] [phone] Rob Clay, DO [address] [place], [facility]11 Social History Tobacco Use Types Packs/Day [...] 06/13/2025 9:50 AM EDT Office Visit [facility] [address] [place] [phone] Rob Clay, DO [address], [facility]11 documented as of this encounter Visit Diagnoses Not on filedocumented in this encounter
== END 2025-04-29 13:34 | disposition home or self-care (01) ==
PROVIDERS: Visit Provider Obstetrics & Gynecology
DX: E28.2 Polycystic ovarian syndrome (principal)
CPT/HCPCS: 36415; 84144

== ENCOUNTER 2025-05-10 11:46 | Outpatient (OUT) | payer BC, SELFPAY | END 2025-05-10 11:47 | disposition home or self-care (01) | PROVIDERS: Visit Provider Obstetrics & Gynecology | DX: Z32.01 Encounter for pregnancy test, result positive (principal) | CPT/HCPCS: 36415; 84702 ==

== ENCOUNTER 2025-05-12 10:57 | Outpatient (RCR) | payer BC, SELFPAY ==
--- OUTSIDE RECORDS SUMMARY | 2025-05-12 11:01 | XMS_ITS | Clinical Summary ---
Author Organization [facility] Address [id number] [address] [place] [address] Care Team Providers Care Director Of Integrated Marketing Name Role Phone No Pcp, No Pcp [...] care following delivery 05/07/2017 07/07/2018 Overview (05/14/2017): Gisella removed. Healing well. Interdry provided. RTC 1 [...] u se disorder, mild, abuse 10/01/2016 04/14/2017 Immunizations Immunization Administration Dates Next Due Influenza, [...] and Family Twice a week 05/25/2020 Attends Jain Services More than 4 times per year [...] Answer Date Recorded Total Score 3 11/01/2024 [facility] of Occupat ional Health - Occupational Stress [...] Procedure Name Priority Date/Time Associated Diagnosis Comments HIGH RISK HPV W/SHAHRIAR Routine 11/01/2024 5:42 AM EST Pap smear for cervical cancer screening Well woman exam with routine gynecological exam from Last 3 Months or Most Recently Relevant to Health Maintenance Results * High risk HPV w/shahriar (11/01/2024 5:42 AM EST) Hpv specimen type ThinPrep 11/02/2024 5:43 AM EST [facility] Hpv 16 Negative Negative^N egative 11/02/2024 2:15 PM EST [facility] Hpv 18 Negative Negative^N egative 11/02/2024 2:15 PM EST [facility] Other high risk hpv Negative Negative^N egative 11/02/2024 2:15 PM EST [facility] Comment: HPV types 31,33,35,39,45,52,56,58,59,66 and 68 DNA were undetectable. THINP 11/01/2024 5:42 AM EST 11/02/2024 5:43 AM EST us Yolanda Meza [employer] LAB BLOOD ORDERABLES Fin al Result Performing Organization Address [facility]/State/ZIP Co de Phone Number [facility] [address] [facility] [address] [place] [address] [facility] [address] [place] [address] from Last 3 Months or Most Recently Relevant to Health Maintenance Insurance [facility] Care Teams Director Of Integrated Marketing Relationship Specialty Start Date End Date No Pcp, No Pcp JAMES Mario [id number] PCP - General Family Medicine 08/26/24
--- OUTSIDE RECORDS SUMMARY | 2025-05-12 11:01 | XMS_ITS | Encounter Summary ---
Author Organization [facility] Address [address] [place] [address] Care Team Providers Care Budget And Policy Analyst Name Role Phone Unavailable Primary Care Provider Unavailabl e Encounter Details Date Type Department Care Team (Late Contact Info) Description 05/10/2025 Clinisync Result Encounter [facility] External Department Unsolicited Rob Clay, DO [address] [place] [address] Social History Tobacco Use Types Packs/Day Years Used Date Smoking Tobacco: Never Assessed Comments Unknown Sex and Gender Information Value Date Recorded Sex Assigned at Not on file Legal Sex Female 6:39 PM EDT Gender Identity Not on file Sexual Orientation Not on file documented as of this encounter Plan of Treatment Upcoming Encounters Date Type Department Care Team ([facility] Contact Info) Description 06/13/2025 9:50 AM EDT Office Visit [facility] [address] [place] [address] [place] [phone] Rob Clay, DO [address] [place] [address] documented as of this encounter Procedures Procedure Name Priority Date/Time Associated Diagnosis Comments [facility] PREG QUANT HCG Routine 05/10/2025 12 :02 PM EDT documented in this encounter Results * [facility] PREG QUANT HCG (05/10/2025 12:02 PM EDT) HCG QUANTITATIVE 74 mIU/mL [facility] Comment: 5-50 0.2-1 WEEK 50-500 1-2 WEEKS 100-5,000 2-3 WEEKS 500-10,000 3-4 WEEKS 1,000-50,000 4-5 WEEKS 10,000-100,000 5-6 WEEKS 15,000-200,000 6-8 WEEKS 10,000-100,000 2-3 MONTHS 05/10/2025 12:0 2 PM EDT 05/10/2025 12:04 PM EDT Narrative [facility] - 05/10/2025 12:39 PM EDT us Rob Clay DO CLINISYNC Final Result Performing Organization Address City/State/[facility] Co de Phone Number [facility] documented in this encounter Visit Diagnoses Not on filedocumented in this encounter
--- OUTSIDE RECORDS SUMMARY | 2025-05-12 11:01 | XMS_ITS | Encounter Summary ---
Author Organization [facility] Address [address] [place] [address] Care Team Providers Care Water And Gas Helper Name Role Phone Unavailable Primary Care Provider Unavailabl e Encounter Details Date Type Department Care Team (Late st Contact Info) Description 02/08/2025 Abstract [facility] [place] [address] [phone] Rob Clay DO [address], [facility]11 Social History Tobacco Use Types Packs/Day Years [...] 9:50 AM EDT Office Visit [facility] [place] [address] [place] [phone] Rob Clay DO [address], [facility]11 documented as of this encounter Visit Diagnoses Not on filedocumented in this encounter
--- OUTSIDE RECORDS SUMMARY | 2025-05-12 11:01 | XMS_ITS | Encounter Summary ---
Author Organization [facility] Address [id number] [address] [place] [address] Care Team Providers Care Vaccine Customer Representative Name Role Phone No Pcp, No Pcp Primary Care Provider Unavailabl e Encounter Details Date Type Department Care Team ([facility] st Contact Info) Description 10/17/2021 Orders Only [facility] [address] [place] [phone] Bhavna Crump CMA Close exposure to COVID-19 [...] and Family Twice a week 05/25/2020 Attends [employer] Services More than 4 times per year [...] Answer Date Recorded Total Score 0 08/24/2019 [place] of Occupat ional Health - Occupational Stress [...] Negative Negative SUNQUEST NASOPHARYNGEAL 10/10/2021 Caroline Vora APRN-LUBRICATING SPECIALIST MICROBIOLOGY - GENE RAL ORDERABLES Final Result SUNQUEST documented in this encounter Visit Diagnoses Diagnosis Close exposure to COVID-19 virus documented in this encounter Additional Health Concerns Assessment Noted Time PHQ-9 Depression Total Score: 0 08/24/20 19 5:16 PM EST A Body Mass Index follow-up plan has been documented for the patient 08/07/2020 5:20 PM EST documented as of this encounter Care Teams Vaccine Customer Representative Relationship Specialty Start Date End Date No Pcp, [place] [address] PCP - General Family Medicine 08/26/24 documented as of this encounter
--- OUTSIDE RECORDS SUMMARY | 2025-05-12 11:01 | XMS_ITS | Encounter Summary ---
Author Organization [facility] Address [id number] [address] [place] [address] Care Team Providers Care Training And Quality Manager Name Role Phone No Pcp, No Pcp Primary Care Provider Unavailabl e Encounter Details Date Type Department Care Team (Late st Contact Info) Description 10/09/2021 Telephone [facility] [address] [place] [address] [place] [phone] Bhavna Crump CMA Social History Tobacco Use [...] Answer Date Recorded Total Score 0 08/24/2019 [facility] of Occupat ional Health - Occupational Stress [...] documented as of this encounter Care Teams Training And Quality Manager Relationship Specialty Start Date End Date No Pcp, No Pcp JAMES Mario [id number] PCP - General Family Medicine 08/26/24 documented as of this encounter
--- OUTSIDE RECORDS SUMMARY | 2025-05-12 11:01 | XMS_ITS | Encounter Summary ---
Author Organization [facility] Address [address] [place] [address] Care Team Providers Care X Ray Equipment Tester Name Role Phone Unavailable Primary Care Provider Unavailabl e Encounter Details Date Type Department Care Team (Late st Contact Info) Description 02/09/2025 Abstract [facility] [place] [phone] Rob Clay DO [address], [facility]11 Social History Tobacco Use Types Packs/Day Years [...] 9:50 AM EDT Office Visit [facility] [place] [phone] Rob Clay DO [address], [facility]11 documented as of this encounter Visit Diagnoses Not on filedocumented in this encounter
--- OUTSIDE RECORDS SUMMARY | 2025-05-12 11:01 | XMS_ITS | Encounter Summary ---
Author Organization [facility] Address [id number] [address] [place] [address] Care Team Providers Care Director Supplier Quality Name Role Phone No Pcp, No Pcp Primary Care Provider Unavailabl e Encounter Details Date Type Department Care Team (Late st Contact Info) Description 07/20/2020 Orders Only [facility] [address] [place] [phone] Tiffanie Mancini, WASTEWATER TECHNICIAN-TAKE OUT WAITRESS [address] [place] [address] Social History Tobacco Use Types Packs/Day Years [...] and Family Twice a week 05/25/2020 Attends Judaism Services More than 4 times per year [...] Answer Date Recorded Total Score 0 08/24/2019 [facility] [place] of Occupat ional Health - Occupational Stress [...] as of this encounter Care Teams Director Supplier Quality Relationship Specialty Start Date End Date No Pcp, [place] [address] PCP - General Family Medicine 08/26/24 documented as of this encounter
--- OUTSIDE RECORDS SUMMARY | 2025-05-12 11:01 | XMS_ITS | Encounter Summary ---
Author Organization [facility] Address [address] [place] [address] Care Team Providers Care Frame Nailer Name Role Phone Unavailable Primary Care Provider Unavailabl e Encounter Details Date Type Department Care Team (Late st Contact Info) Description 02/10/2025 Abstract [facility] [place] [phone] Rob Clay DO [address], [facility]11 Social History Tobacco Use Types [...] 9:50 AM EDT Office Visit [facility] [place] [phone] Rob Clay DO [address], [facility]11 documented as of this encounter Visit Diagnoses Not on filedocumented in this encounter
--- OUTSIDE RECORDS SUMMARY | 2025-05-12 11:01 | XMS_ITS | Encounter Summary ---
Author Organization [facility] Address [id number] [address] [place] [address] Care Team Providers Care Sales Officer Name Role Phone No Pcp, No Pcp Primary Care Provider Unavailabl e Encounter Details Date Type Department Care Team (Late st Contact Info) Description 01/08/2023 Telephone [facility] [address] [place] [address] [place] [address] [place] Noyola CMA Social History [...] Answer Date Recorded Total Score 2 01/07/2023 [facility] [place] of Occupat ional Health - Occupational Stress [...] documented as of this encounter Care Teams Sales Officer Relationship Specialty Start Date End Date No Pcp, [place] [address] PCP - General Family Medicine 08/26/24 documented as of this encounter
--- OUTSIDE RECORDS SUMMARY | 2025-05-12 11:01 | XMS_ITS | Encounter Summary ---
Author Organization [facility] Address [address] [place] [address] Care Team Providers Care Health Outcomes Liaison Name Role Phone Unavailable Primary Care Provider Unavailabl e Encounter Details Date Type Department Care Team (Late st Contact Info) Description 02/07/2025 Abstract [facility] [place] [phone] Rob Clay DO [address], [...] 9:50 AM EDT Office Visit [facility] [place] [phone] Rob Clay DO [address], [facility]11 documented as of this encounter Visit Diagnoses Not on filedocumented in this encounter
--- OUTSIDE RECORDS SUMMARY | 2025-05-12 11:01 | XMS_ITS | Encounter Summary ---
Author Organization [facility] Address [address] [place] [address] Care Team Providers Care Branch Associate Teller Name Role Phone Unavailable Primary Care Provider Unavailabl e Encounter Details Date Type Department Care Team (Late st Contact Info) Description 04/16/2025 Abstract [facility] [place] [phone] Rob Clay DO [address], [facility]11 Social History Tobacco Use Types Packs/Day [...] 9:50 AM EDT Office Visit [facility] [place] [phone] Rob Clay DO [address], [facility]11 documented as of this encounter Visit Diagnoses Not on filedocumented in this encounter
--- OUTSIDE RECORDS SUMMARY | 2025-05-12 11:01 | XMS_ITS | Encounter Summary ---
Author Organization [facility] Address [id number] [address] [place] [address] Care Team Providers Care Electrician Powerhouse Name Role Phone No Pcp, No Pcp Primary Care Provider Unavailabl e Reason for Visit * Reason Onset Date Comments reschd appt 2020 Encounter Details Date Type Department Care Team (Late st Contact Info) Description [facility] [address] [place] [phone] Jennifer Alvarez reschd appt Social History Tobacco [...] and Family Twice a week 05/25/2020 Attends Hinduism Services More than 4 times per year [...] Answer Date Recorded Total Score 0 08/24/2019 [facility] of Occupat ional Health - Occupational Stress [...] documented as of this encounter Care Teams Electrician Powerhouse Relationship Specialty Start Date End Date No Pcp, [place] [address] PCP - General Family Medicine 08/26/24 documented as of this encounter
--- OUTSIDE RECORDS SUMMARY | 2025-05-12 11:01 | XMS_ITS | Clinical Summary ---
Author Organization [facility] Address [address] [place] [address] Care Team Providers Care Collar Padder Blindstitch Name Role Phone Unavailable Primary Care Provider [...] patient's age to complete this topic Insurance [facility] MED[facility]
--- OUTSIDE RECORDS SUMMARY | 2025-05-12 11:01 | XMS_ITS | Encounter Summary ---
Author Organization [facility] Address [address] [place] [address] Care Team Providers Care Nursing Unit Clerk Name Role Phone Unavailable Primary Care Provider Unavailabl e Encounter Details Date Type Department Care Team ([facility] Contact Info) Description 05/10/2025 Telephone [facility] [address] [place] [phone] Kristin Varela LPN Social History Tobacco Use Types Packs/Day Years Used Date Smoking Tobacco: Never Assessed Comments Unknown Sex and Gender Information Value Date Recorded Sex Assigned at Not on file Legal Sex Female 6:39 PM EDT Gender Identity Not on file Sexual Orientation Not on file documented as of this encounter Miscellaneous Notes * Telephone Encounter - Kristin Varela LPN - 05/10/2025 8:41 AM EDT 04/08/25 @8:57am Patient called and LMOM stating that she had taken a urine test and it came back positive yesterday. Patient desires a call back to discuss next steps. 04/09/25 @8:45am Called patient and discussed having labs drawn for initial HCG quant level and then again 48 hours later. Patient will have labs drawn at [facility]. After second lab drawn patient will be contacted to setup dating/viability ultrasound and OB intake. PVU Based on patients LMP 04/09/25 SCOTTY by LMP would be 01/14/2026 and patient is currently 4.3 weeks gestation. Patient will be able to be setup for intake and ultrasound week of 05/30/25.--Kristin Wing LPN documented in this encounter Plan of Treatment Upcoming Encounters Date Type Department Care Team (Late st Contact Info) Description 06/13/2025 9:50 AM EDT Office Visit [facility] [address] [place] [phone] Rob Clay DO [address] [facility] [address] [place] [address] Scheduled Orders Name Type Priority Associated Diagnoses Orde r Schedule hCG, quantitative Lab Routine Positive urine test ([facility]) Expected: 05/10/2025 (Approximate), Expires: 05/10/2026 documented as of this encounter Visit Diagnoses Diagnosis Positive urine test ([facility]) documented in this encounter
--- OUTSIDE RECORDS SUMMARY | 2025-05-12 11:01 | XMS_ITS | Encounter Summary ---
Author Organization [facility] Address [address] [place] [address] Care Team Providers Care Jazz Singer Name Role Phone Unavailable Primary Care Provider Unavailabl e Encounter Details Date Type Department Care Team (Late Contact Info) Description 04/29/2025 Clinisync Result Encounter [facility] External Department Unsolicited Rob Clay, DO [address] [place] [place] [address] Social History Tobacco Use Types Packs/Day Years Used Date Smoking Tobacco: Never Assessed Comments Unknown Sex and Gender Information Value Date Recorded Sex Assigned at Not on file Legal Sex Female 6:39 PM EDT Gender Identity Not on file Sexual Orientation Not on file documented as of this encounter Plan of Treatment Upcoming Encounters Date Type Department Care Team ([facility] Contact Info) Description 06/13/2025 9:50 AM EDT Office Visit [facility] [address] [place] [address] [place] [phone] Rob Clay, DO [address] [place] [address] documented as of this encounter Procedures Procedure Name Priority Date/Time Associated Diagnosis Comments ALL PROGESTERONE Routine 04/29/2025 1:42 PM EDT documented in this encounter Results * ALL PROGESTERONE (04/29/2025 1:42 PM EDT) PROGESTERONE 21.7 . ng/mL TB Comment: Follicular phase 0.1 - 0.9 Luteal phase 1.8 - 23.9 Ovulation phase 0.1 - 12.0 First trimester 11.0 - 44.3 Second trimester 25.4 - 83.3 Third trimester 58.7 - 214.0 Postmenopausal 0.0 - 0.1 Performed at: [facility] [address] [id number] Concrete Block Molder: Kashif Lundy PhD, Phone: [phone] 04/29/2025 1:42 PM EDT 04/29/2025 1:43 PM EDT Narrative CLINISYNC - 04/30/2025 8:08 AM EDT us Rob Clay DO CLINISYNC Final Result [facility] documented in this encounter Visit Diagnoses Not on filedocumented in this encounter
== END 2025-06-04 23:59 | disposition home or self-care (01) ==
LOC: LAB 10:57
PROVIDERS: Visit Provider Obstetrics & Gynecology
DX: Z32.01 Encounter for pregnancy test, result positive (principal)
CPT/HCPCS: 36415; 84702